=== PATIENT | male | born 1965 | race Caucasian/White ===

== ENCOUNTER 2017-01-21 12:54 | Emergency (ER) | payer MEDICAID ==
[~2017-01-21] VITALS: Ht 170.2 cm; Wt 99.8 kg
[2017-01-21 13:02] VITALS: BP 165/134
[2017-01-21] MEDS ORDERED: LABETALOL 100 MG/20 ML VIAL IV ONE (14:35)
[2017-01-21 14:43] LABS: APPEARANCE,URINE HAZY (CLEAR); BILIRUBIN,URINE NEGATIVE (NEGATIVE); BLOOD, URINE NEGATIVE (NEGATIVE); COLOR,URINE YELLOW (YELLOW); LEUKOCYTE ESTERASE ,URINE NEGATIVE (NEGATIVE); NITRITE, URINE NEGATIVE (NEGATIVE); UGLUCOSE NEGATIVE (NEGATIVE)
[2017-01-21 14:49] LABS: HEMOGLOBIN 14.8 g/dL (12.0-18.0); MEAN CORPUSCULAR HEMOGLOBIN 28 pg (27-31); MEAN CORPUSCULAR HGB CONC 33 g/dL (33-37); MEAN CORPUSCULAR VOLUME 86 fL (80-94); PLATELET COUNT (AUTO) 231 K/uL (140-450); RED BLOOD CELL COUNT(AUTO) 5.25 MIL/uL (4.20-6.10); RED CELL DISTRIBUTION WIDTH 12.8 % (11.6-13.7); WHITE BLOOD COUNT (AUTO) 5.1 K/uL (4.8-10.8)
[2017-01-21 15:03] LABS: LYMPHOCYTES % (MANUAL) 40 % (20-46)
[2017-01-21 15:04] LABS: MONOCYTES % (MANUAL) 13 % (5-12)
[2017-01-21 15:05] LABS: PROTHROMBIN TIME 10.8 secs (10.8-13.4)
[2017-01-21 15:10] LABS: ANION GAP 9.2 (8-16); CARBON DIOXIDE 28.4 mmol/L (21-32); CREATININE 0.9 mg/dL (0.7-1.3); POTASSIUM 3.6 mmol/L (3.5-5.1)
[2017-01-21 15:11] LABS: ALBUMIN 3.3 g/dL (3.4-5.0); TOTAL BILIRUBIN 0.4 mg/dL (0.0-1.0)
[2017-01-21] MEDS ORDERED: cloNIDine 0.1 MG TAB PO ONE (17:40)
[2017-01-21] MEDS ORDERED: LISINOPRIL 20 MG TAB PO STA (17:49)
[2017-01-21] MEDS ORDERED: LABETALOL 100 MG/20 ML VIAL IVP ONE (18:15)
[2017-01-21 19:24] VITALS: BP 153/92
[2017-01-22] MEDS ORDERED: LISINOPRIL 20 MG TAB PO SCH (09:00)
== END 2017-01-21 19:24 | disposition short-term general hospital (02) ==
LOC: MED 12:54
DX: R51 Headache (principal); I16.1 Hypertensive emergency; R27.0 Ataxia, unspecified; I10 Essential (primary) hypertension; E78.5 Hyperlipidemia, unspecified
CPT/HCPCS: 36415; 70470; 71010; 80053; 81003; 84484; 85025; 85610; 85730; 93005; 96374; 96375; 99291; 99292; J3490; Q0092; Q9967; 99285